=== PATIENT | female | born 1980 | race Caucasian/White ===

== ENCOUNTER 2024-01-18 03:23 | Emergency (ER) | payer OTHER ==
[2024-01-18 03:31] VITALS: BMI 32.8
[2024-01-18] MEDS ORDERED: ACETAMINOPHEN INJECTION 100 ML IVPB ONE (04:19)
[2024-01-18 04:30] LABS: PH,URINE 5.5 (5.0-8.0); URINE APPEARANCE CLEAR; URINE BILIRUBIN NEGATIVE (NEGATIVE); URINE COLOR YELLOW; URINE GLUCOSE (UA) NEGATIVE (NEGATIVE); URINE KETONE NEGATIVE (NEGATIVE); URINE LEUK ESTERASE NEGATIVE (NEGATIVE); URINE NITRITE NEGATIVE (NEGATIVE); URINE PROTEIN NEGATIVE (NEGATIVE); URINE UROBILINOGEN 0.2 mg/dL (0.2-1.0)
[2024-01-18] MEDS: ACETAMINOPHEN 1000 MG/100 ML BAG IVPB ONE (04:40)
[2024-01-18 05:17] LABS: BASO % 0.4 % (0-2.0); EOS % 0.3 % (0-4.5); HEMOGLOBIN 12.1 GM/dL (10.7-15.3); LYMPH % 10.8 % (8-40); MCH 23.5 pg (25.7-33.7); MCHC 31.9 g/dl (32.0-36.0); MEAN CELL VOLUME 73.9 fl (80-96); MEAN PLT VOLUME 9.3 fl (7.5-11.1); MONO % 4.7 % (3.8-10.2); NEUT % 83.8 % (42.8-82.8); PLATELET COUNT 357 10^3/uL (134-434); RBC 5.15 M/mm3 (3.60-5.2); RDW 15.7 % (11.6-15.6); WHITE BLOOD COUNT 18.3 K/mm3 (4.0-10.0)
[2024-01-18 05:40] LABS: POTASSIUM 4.4 mmol/L (3.5-5.1)
[2024-01-18 05:42] LABS: ALBUMIN 3.8 g/dl (3.4-5.0); CALCIUM 9.4 mg/dL (8.5-10.1)
[2024-01-18 05:43] LABS: BLOOD UREA NITROGEN 14.9 mg/dL (7-18)
[2024-01-18 05:47] LABS: BILIRUBIN,TOTAL 0.3 mg/dL (0.2-1); TOT PROT 7.7 g/dl (6.4-8.2)
[2024-01-18] MEDS: morphine CARPU-JECT 2 MG/1 ML DISP.SYRIN IVPUSH ONE (06:23)
[2024-01-18 07:22] VITALS: BP 129/75; PULSE 86; RESP 18; TEMP 98.4
[2024-01-18] MEDS ORDERED: KETOROLAC TROMETHAMINE 15 MG/ML VIAL ONE (08:34)
[2024-01-18] MEDS: KETOROLAC TROMETHAMINE 15 MG/ML VIAL IVPUSH ONE (08:38)
== END 2024-01-18 11:11 | disposition home or self-care (01) ==
LOC: JER 03:23
PROC: 3E033NZ Introduction of Analgesics, Hypnotics, Sedatives into Peripheral Vein, Percutaneous Approach (ICD-10-PCS; principal; 2024-01-18)
PROC: 3E0333Z Introduction of Anti-inflammatory into Peripheral Vein, Percutaneous Approach (ICD-10-PCS; 2024-01-18)
PROC: 3E033GC Introduction of Other Therapeutic Substance into Peripheral Vein, Percutaneous Approach (ICD-10-PCS; 2024-01-18)
DX: R10.32 Left lower quadrant pain (principal); N83.202 Unspecified ovarian cyst, left side; R26.2 Difficulty in walking, not elsewhere classified
CPT/HCPCS: 36415; 76830-TC; 80053; 81003; 84703; 85025; 87086; 99284-25; J0131